=== PATIENT | female | born 1965 | race American Indian/Alaskan Native ===

== ENCOUNTER 2020-09-12 13:22 | Emergency (ER) | payer SELFPAY ==
--- NOTE | 2020-09-12 13:31 | Event Note ---
ED Screening Note ED Screening Note: RLQ abd pain yesterday no n/v/d no fever no urinary symptoms no back pain PMHx anemia, HTN states that 5 years ago she was diagnosed with appendicitis but did not have the appendix removed at that time secondary to anemia needing RBC transfusion no PSHx she is post menopausal This initial assessment/diagnostic orders/clinical plan/treatment(s) is/are subject to change based on patients health status, clinical progression and re- assessment by fellow clinical providers in the ED. Further treatment and workup at subsequent clinical providers discretion. Patient/guardian urged not to elope from the ED as their condition may be serious if not clinically assessed and managed. Initial orders include: labs, UA
[2020-09-12 14:39] LABS: Basophils # (Auto) 0.1 K/mm3 (0.0-0.1); Basophils % (Auto) 0.8 % (0.0-1.8); Eosinophils # (Auto) 0.2 K/mm3 (0.0-0.4); Eosinophils % (Auto) 2.8 % (0.0-4.3); Hematocrit 42.4 % (30.3-42.9); Lymphocytes # (Auto) 2.4 K/mm3 (1.2-5.4); Lymphocytes % (Auto) 33.6 % (13.4-35.0); Mean Corpuscular HGB Conc 33 % (30-34); Mean Corpuscular Volume 91 fl (79-97); Monocytes # (Auto) 0.4 K/mm3 (0.0-0.8); Platelet Count 230 K/mm3 (140-440); Red Blood Count 4.68 M/mm3 (3.65-5.03); Red Cell Distribution Width 12.4 % (13.2-15.2)
[2020-09-12 14:46] LABS: Bilirubin,Urine NEG (Negative); Blood,Urine NEG (Negative); Color,Urine Yellow (Yellow); Mucus,Urine FEW /HPF; Protein,Urine <15 mg/dL mg/dL (Negative); Urobilinogen,Urine < 2.0 mg/dL (<2.0)
[2020-09-12 14:57] LABS: Alanine Aminotransferase 23 units/L (7-56); Albumin 4.7 g/dL (3.9-5); Blood Urea Nitrogen 10 mg/dL (7-17); Calcium 9.6 mg/dL (8.4-10.2); Hemolysis Index 12
[2020-09-12 15:11] LABS: BUN/Creatinine Ratio 14
--- NOTE | 2020-09-12 22:16 | Emergency Department Report ---
ED Abdominal Pain HPI - General Chief Complaint: Abdominal Pain Stated Complaint: RT LEG PAINS PUI?: No Time Seen by Provider: 09/12/20 13:28 Source: patient Mode of arrival: Ambulatory Limitations: No Limitations - History of Present Illness Initial Comments: Chief complaint abdominal pain This is a 55-year-old postmenopausal female with history of anemia, hypertension who presents with right lower quadrant abdominal pain that radiates to her right buttock which began 2:00 on yesterday gradually. 6 out of 10 dull pain. She denies fever vomiting diarrhea constipation. No change with movement. She does have decreased appetite. In April 2016, patient was diagnosed with acute appendicitis. Treated with oral antibiotics Augmentin. Her symptoms completely resolved. At that time she was treated at outside [facility]. Complaint: abdominal pain -: Gradual, This afternoon Location: RLQ Radiation: other (Right buttock) Severity: moderate Severity scale (0 -10): 6 Quality: dull Consistency: constant Improves With: nothing Worsens With: nothing Context: other (2016: History of appendicitis treated with Augmentin) - Related Data Previous Rx's Medication Instructions Recorded Last Taken Type HYDROcodone/APAP 5-325 [[place] 1 each PO Q6HR PRN #10 tablet 09/12/20 Unknown Rx 5/325] Ibuprofen [Motrin 800 MG tab] 800 mg PO Q8HR PRN #20 tablet 09/12/20 Unknown Rx Allergies Allergy/AdvReac Type Severity Reaction Status Date / Time No Known Allergies Allergy Unverified 09/12/20 13:30 ED Review of Systems ROS: Stated complaint: RT LEG PAINS Other details as noted in HPI Comment: All other systems reviewed and negative Constitutional: denies: fever, malaise Cardiovascular: denies: chest pain Gastrointestinal: abdominal pain. denies: nausea, vomiting ED Past Medical Hx - Past Medical History Previous Medical History?: Yes Hx Hypertension: Yes Additional medical history: anemia - Surgical History Past Surgical History?: No - Social History Smoking Status: Never Smoker - Medications Home Medications: Home Medications Medication Instructions Recorded Confirmed Last Taken Type HYDROcodone/APAP 5-325 [[place] 1 each PO Q6HR PRN #10 tablet 09/12/20 Unknown Rx 5/325] Ibuprofen [Motrin 800 MG tab] 800 mg PO Q8HR PRN #20 tablet 09/12/20 Unknown Rx ED Physical Exam - General Limitations: No Limitations General appearance: alert, in no apparent distress - Head Head exam: Present: atraumatic, normocephalic - Eye Eye exam: Present: normal appearance - ENT ENT exam: Present: mucous membranes moist - Neck Neck exam: Present: normal inspection, full ROM - Respiratory Respiratory exam: Present: normal lung sounds bilaterally. Absent: respiratory distress, wheezes, rales, rhonchi - Cardiovascular Cardiovascular Exam: Present: regular rate, normal rhythm, normal heart sounds. Absent: systolic murmur, diastolic murmur, rubs, gallop - GI/Abdominal GI/Abdominal exam: Present: soft, distended, normal bowel sounds. Absent: tenderness, guarding, rebound - Extremities Exam Extremities exam: Present: normal inspection - Neurological Exam Neurological exam: Present: alert, oriented X3 - Psychiatric Psychiatric exam: Present: normal affect, normal mood - Skin Skin exam: Present: warm, dry, intact, normal color. Absent: rash ED Course Vital Signs 09/12/20 09/12/20 09/12/20 13:23 22:12 22:16 Temperature 97.7 F Pulse Rate 90 Respiratory 18 Rate Blood Pressure 168/101 164/97 O2 Sat by Pulse 100 100 99 Oximetry 09/12/20 09/12/20 22:18 22:19 Temperature Pulse Rate 76 Respiratory 16 Rate Blood Pressure O2 Sat by Pulse Oximetry ED Medical Decision Making - Lab Data Result diagrams: 09/12/20 13:45 09/12/20 13:45 Laboratory Results - last 24 hr 09/12/20 09/12/20 09/12/20 13:45 13:45 Unknown WBC 7.0 RBC 4.68 Hgb 14.0 Hct 42.4 MCV 91 MCH 30 MCHC 33 RDW 12.4 L Plt Count 230 Lymph % (Auto) 33.6 [place] % (Auto) 5.0 Eos % (Auto) 2.8 Baso % (Auto) 0.8 Lymph # (Auto) 2.4 [place] # (Auto) 0.4 Eos # (Auto) 0.2 Baso # (Auto) 0.1 Seg Neutrophils % 57.8 Seg Neutrophils # 4.1 Sodium 139 Potassium 4.7 Chloride 102.0 Carbon Dioxide 26 Anion Gap 16 BUN 10 Creatinine 0.7 Estimated GFR > 60 BUN/Creatinine Ratio 14 Glucose 98 Calcium 9.6 Total Bilirubin 0.60 AST 22 ALT 23 Alkaline Phosphatase 90 Total Protein 8.6 H Albumin 4.7 Albumin/Globulin Ratio 1.2 Lipase 33 Urine Color Yellow Urine Turbidity Cloudy Urine pH 7.0 Ur Specific [place] 1.018 Urine Protein <15 mg/dl Urine Glucose (UA) Neg Urine Ketones Neg Urine Blood Neg Urine Nitrite Neg Urine Bilirubin Neg Urine Urobilinogen < 2.0 Ur Leukocyte Esterase Sm Urine WBC (Auto) 24.0 H Urine RBC (Auto) 1.0 U Epithel Cells (Auto) 46.0 H Urine Mucus Few - Radiology Data Radiology results: report reviewed Findings Reporting MD: Susan Sutherland Dictation Time: September 12, 2020 22:20 Electrician Supervisor Substation: Not available Vice President Of Advertising Date: CT ABDOMEN AND PELVIS WITH CONTRAST HISTORY: rlq pain. COMPARISON: None. TECHNIQUE: CT images of the abdomen and pelvis were obtained following administration of intravenous contrast. All CT scans at this location are performed using CT dose reduction for ALARA by means of automated exposure control. CONTRAST: 100 ml of intravenous contrast administered. FINDINGS: Lungs/bones: Lung bases are clear. There are degenerative changes in the spine and pelvis with no acute osseous abnormality identified. Abdomen/pelvis: There is mild hepatic steatosis. The liver is otherwise unremarkable. The gallbladder, spleen, pancreas, adrenals, kidneys, and proximal GI tract appear unremarkable. Urinary bladder is unremarkable. Uterus is lobulated especially right of midline which may represent underlying fibroid disease. This should be noted that the right ovary is not well seen. No pelvic free fluid or pathologic adenopathy identified. Colon is unremarkable fat-containing right inguinal hernia. IMPRESSION: 1. Probable uterine fibroid disease although this should be confirmed nonemergently with pelvic ultrasound since the right ovary is not well-seen on this exam. 2. Additional incidental findings as above. Signer Name: Susan Sutherland MD Signed: 09/12/2020 10:20 PM Workstation Name: [id number] - Medical Decision Making Ms. Mcghee presents with right lower quadrant pain radiating to the buttock. She did not have any fever or peritoneal signs such as tenderness or hesitation to walk. She ambulate without difficulty. Patient did have abdominal distention palpated. Abdominal distention correlates with CT findings of large lobulated uterus likely due to uterine fibroids. I suspect uterine fibroids are the cause of her pain. She understands return precautions especially fever severe pain anorexia. Critical care attestation.: If time is entered above; I have spent that time in minutes in the direct care of this critically ill patient, excluding procedure time. ED Disposition Clinical Impression: Uterine fibroid, Acute pelvic pain Disposition: TO HOME OR SELFCARE Is pt being admited?: No Does the pt Need Aspirin: No Condition: Stable Instructions: Abdominal Pain (ED), Uterine Fibroids, [id number] Prescriptions: Ibuprofen [Motrin 800 MG tab] 800 mg PO Q8HR PRN #20 tablet PRN Reason: Pain , Severe (7-10) HYDROcodone/APAP 5-325 [[place] 5/325] 1 each PO Q6HR PRN #10 tablet PRN Reason: Pain Referrals: SUSAN HOFFMANN JR, MD [Staff Physician] - 3-5 Days
--- NOTE | 2020-09-12 23:24 | Cat Scan Report ---
CT ABDOMEN AND PELVIS WITH CONTRAST HISTORY: rlq pain. COMPARISON: None. TECHNIQUE: CT images of the abdomen and pelvis were obtained following administration of intravenous contrast. All CT scans at this location are performed using CT dose reduction for ALARA by means of automated exposure control. CONTRAST: 100 ml of intravenous contrast administered. FINDINGS: Lungs/bones: Lung bases are clear. There are degenerative changes in the spine and pelvis with no ac belkofski osseous abnormality identified. Abdomen/pelvis: There is mild hepatic steatosis. The liver is otherwise unremarkable. The gallbladde r, spleen, pancreas, adrenals, kidneys, and proximal GI tract appear unremarkable. Urinary bladder is unremarkable. Uterus is lobulated especially right of midline which may represent underlying fibroid disease. This should be noted that the right ovary is not well seen. No pelvic evelio e fluid or pathologic adenopathy identified. Colon is unremarkable fat-containing right inguinal janice ia. IMPRESSION: 1. Probable uterine fibroid disease although this should be confirmed nonemergently with pelvic ultra sound since the right ovary is not well-seen on this exam. 2. Additional incidental findings as above. Signer Name: Miquel Sutherland MD Signed: 09/12/2020 11:20 PM Workstation Name: [id number]
[2020-09-13 01:21] VITALS: BP 145/87
== END 2020-09-13 01:00 | disposition home or self-care (01) ==
LOC: ED 13:22
DX: D25.9 Leiomyoma of uterus, unspecified (principal); R10.2 Pelvic and perineal pain; I10 Essential (primary) hypertension; Z79.899 Other long term (current) drug therapy
CPT/HCPCS: 36415; 74177; 80053; 81001; 83690; 85025; 87086; 99284; Q9967